=== PATIENT | male | born 1970 | race African-American/Black ===

== ENCOUNTER 2021-10-24 03:46 | Emergency (ER) | payer SELFPAY | END 2021-10-24 04:30 | disposition home or self-care (01) | LOC: CSHERS 03:46 | DX: G56.31 Lesion of radial nerve, right upper limb (principal); I10 Essential (primary) hypertension; F17.210 Nicotine dependence, cigarettes, uncomplicated; Z86.73 Personal history of transient ischemic attack (TIA), and cerebral infarction without residual deficits | CPT/HCPCS: 99284 ==

== ENCOUNTER 2021-10-27 09:56 | Emergency (ER) | payer SELFPAY | END 2021-10-27 11:48 | disposition home or self-care (01) | LOC: CSHERS 09:56 | DX: G56.31 Lesion of radial nerve, right upper limb (principal); F17.290 Nicotine dependence, other tobacco product, uncomplicated; I10 Essential (primary) hypertension; Z86.73 Personal history of transient ischemic attack (TIA), and cerebral infarction without residual deficits | CPT/HCPCS: 99283 ==

== ENCOUNTER 2024-01-17 02:04 | Emergency (ER) | payer SELFPAY ==
[2024-01-17] MEDS ORDERED: Amoxicillin/Potassium Clav 875 MG TAB ONE (02:21)
[2024-01-17] MEDS ORDERED: Ketorolac Tromethamine 30 MG (1 mL) VIAL ONE (02:21)
[2024-01-17] MEDS ORDERED: Lidocaine Viscous Sol 2% 15 ml UD Cup FS SCH (03:15)
== END 2024-01-17 03:08 | disposition home or self-care (01) ==
LOC: CSHERS 02:04
DX: K04.7 Periapical abscess without sinus (principal); I10 Essential (primary) hypertension; F17.290 Nicotine dependence, other tobacco product, uncomplicated
CPT/HCPCS: 96372; 99283; J1885